=== PATIENT | male | born 1975 | race Hispanic/Latino ===

== ENCOUNTER 2016-05-19 07:32 | Emergency (ER) | payer OTHER ==
[~2016-05-19] VITALS: Ht 170.2 cm; Wt 79.1 kg
[~2016-05-19 07:32] MED LIST: IBUP-1827 PO
[2016-05-19 07:40] VITALS: BP 159/101; PULSE 91; RESP 16; O2SAT 98
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
[2016-05-19 08:16] LABS: BASOPHILS % (AUTO) 0.5 % (0-3); EOSINOPHILS % (AUTO) 2.8 % (0-5); MONOCYTES % (AUTO) 4.6 % (4-12); Mean Corpuscular Hemoglobin 31.8 pg (27.0-35.0); Mean Corpuscular Volume 90.8 fL (81-100); NEUTROPHILS % (AUTO) 65.2 % (40-74); Platelet Count 207 bil/L (150-400)
--- NOTE | 2016-05-19 08:39 | DRSVH ---
PROCEDURE: X-RAY CHEST ONE VIEW, PORTABLE ([id number]) INDICATIONS: CHEST PAIN TECHNIQUE: One view of the chest was acquired. COMPARISON: None. FINDINGS: Surgical changes and devices: None. Lungs and pleura: No pleural effusions or pneumothorax. Lungs are clear. Mediastinum: Mediastinal contours appear normal. Heart size is normal. Bones and chest wall: No suspicious bony lesions. Overlying soft tissues appear unremarkable. IMPRESSION: No acute cardiopulmonary disease. Dictated by: Tyree REEVES Interpreted: Nuzhat Lopez MD on 05/19/2016 at 8:38 Transcribed by: KENDELL on 05/19/2016 at 8:38 Approved by: Nuzhat Lopez M.D. on 05/19/2016 at 8:43
[2016-05-19 08:43] VITALS: BP 135/95; PULSE 75; RESP 13; O2SAT 97
[2016-05-19 08:45] LABS: Magnesium 1.8 mg/dL (1.6-2.6)
[2016-05-19 08:47] LABS: TROPONIN T < 0.010 ug/L (0.0-0.011)
[2016-05-19 09:15] VITALS: BP 145/96; PULSE 85; RESP 17; O2SAT 95
[2016-05-19 12:10] VITALS: BP 136/91; PULSE 75; RESP 23; O2SAT 98
[2016-05-19 12:24] VITALS: BP 136/91; PULSE 75; RESP 23; O2SAT 98
== END 2016-05-19 12:24 | disposition home or self-care (01) ==
LOC: SED 07:32
DX: R07.89 Other chest pain (principal); R42 Dizziness and giddiness; R00.2 Palpitations; R06.02 Shortness of breath; R61 Generalized hyperhidrosis; R11.0 Nausea; F17.200 Nicotine dependence, unspecified, uncomplicated
CPT/HCPCS: 36415; 71010; 80053; 83735; 84443; 84484; 85025; 93005; 96374; 99285; J2060